=== PATIENT | female | born 1960 | race Caucasian/White ===

== ENCOUNTER 2016-05-07 03:35 | Inpatient (IN) ==
--- NOTE | 2016-05-07 04:11 | Emergency Department Note ---
Disposition Clinical Impression: Colitis, Renal cyst Abdominal pain Qualifiers: Abdominal location: right lower quadrant Qualified Code(s): R10.31 - Right lower quadrant pain Leukocytosis, unspecified Qualifiers: Leukocytosis type: unspecified Qualified Code(s): D72.829 - Elevated white blood cell count, unspecified Disposition: Admitted As Inpatient Condition: Good Instructions: Abdominal Pain (ED), Colitis (ED) Reasons to Return/Additional Instructions: . Referrals: NO,PCP [Non-Partnered Physician] - Forms: Work/School Release, ED Satisfaction Letter Time of Disposition: 05:59 Abdominal Pain HPI - General Chief Complaint: ED Abdominal Pain Stated Complaint: abd pain Time Seen by Provider: 05/07/16 03:55 Source: patient Mode of arrival: ambulatory Limitations: no limitations Nursing Notes Reviewed: Yes Vital Signs Reviewed: Yes - History of Present Illness Pt Subjective Complaint: abdominal pain Onset (ago): day(s) (4-5) Consistency: Worsening Location: RLQ Pain Severity: moderate Pain Scale: 5 Quality: cramping, sharp Radiation: none Migration to: no migration Improves with: nothing Worsens with: nothing Associated symptoms: Reports: denies other symptoms Treatments prior to arrival: none - Related Data Previous Rx's Medication Instructions Recorded Blood Sugar Diagnostic [Glucose 1 each MC ACHS #40 strip 04/20/16 Test Strip] Clindamycin [Cleocin] 300 mg PO Q6HR #80 capsule 04/20/16 Metformin [Glucophage] 500 mg PO BIDWM #20 tablet 04/20/16 Allergies Allergy/AdvReac Type Severity Reaction Status Date / Time No Known Allergies Allergy Verified 04/20/16 12:15 All systems ED: reviewed and negative except as stated. Gastrointestinal: Reports: abdominal pain (RLQ) Abdominal Pain PMH - Past Medical History Medical history: Reports: diabetes, hypertension Female Surgical History: Reports: other - Social History Smoking status: Current every day smoker Alcohol use: Reports: rarely Drug use: Reports: none Physical Exam - General Limitations: no limitations General appearance: alert, in no apparent distress - Head Head exam: atraumatic, normocephalic, normal inspection - Eye Eye exam: Present: normal appearance, PERRL, EOMI - ENT ENT exam: normal exam, normal oropharynx, mucous membranes moist - Respiratory Respiratory exam: Present: normal lung sounds bilaterally - Cardiovascular Cardiovascular exam: Present: regular rate, normal rhythm, normal heart sounds - Abdominal Exam Abdominal exam: Present: tenderness (RLQ healing abscess, less redness, but tender at this site. ), guarding, diminished bowel sounds, tenderness at [place]Bur[place]'s Point. Absent: distention, rebound, rigidity, ascites, mass, bruit, pulsatile mass, hernia, scar - Extremities Exam Extremities exam: Present: normal inspection, full ROM. Absent: tenderness, pedal edema - Back Exam Back exam: Present: normal inspection, full ROM. Absent: tenderness - Neurological Exam Neurological exam: Present: alert, oriented X3 - Psychiatric Psychiatric exam: Present: normal affect, normal mood - Skin Skin exam: Present: warm, dry, intact, normal color Course - Consultations Consultation #1: Spoke with hospitalist who accepted patient for admission Time: 05:45 Vital Signs Temperature 98.3 F 05/07/16 03:38 Pulse Rate 129 05/07/16 03:38 Respiratory Rate 16 05/07/16 03:38 Blood Pressure 137/83 05/07/16 03:38 O2 Sat by Pulse Oximetry 98 05/07/16 03:38 Temperature 98.3 F 05/07/16 03:38 Pulse Rate 129 05/07/16 03:38 Respiratory Rate 16 05/07/16 03:38 Blood Pressure 137/83 05/07/16 03:38 O2 Sat by Pulse Oximetry 98 05/07/16 03:38 Oxygen Delivery Oxygen Delivery Room Air Abdominal Pain - MDM Narrative Medical decision making narrative: CT indicates Colitis possible renal mass that will need further evaluation and follow up Her WBC remains elevated and she has finished her antibiotic will start her on another antibiotic. - Differential Diagnosis Differential Diagnosis: Likely: abdominal pain non-specific - Lab Data Lab results reviewed: Yes I reviewed the patient's lab results. Result diagrams: 05/07/16 05:06 05/07/16 05:06 Lab Results 05/07/16 05/07/16 05/07/16 Range/Units 04:13 05:06 05:06 WBC 25.7 H (4.3-11.1) K/mcL RBC 4.59 (3.82-4.97) M/mcL Hgb 13.7 (11.5-15.4) g/dL Hct 40.6 (35.3-44.9) % MCV 88.5 (83.0-100.0) fL MCH 29.8 (28.0-33.3) pg MCHC 33.7 (31.6-35.5) g/dL RDW 12.5 (11.5-14.5) % Plt Count 278 (140-400) K/mcL MPV 10.7 (9.4-12.4) fL Sodium 136 (136-145) mEq/L Potassium 4.1 (3.5-4.5) mEq/L Chloride 103 (98-109) mEq/L Carbon Dioxide 21 (19-29) mEq/L BUN 13 (7-20) mg/dL Creatinine 0.79 (0.57-1.11) mg/dL Est GFR ( Amer) > 60 (> 60) Est GFR (Non-Af Amer) > 60 (> 60) BUN/Creatinine Ratio 16 (6-26) Glucose 196 H (70-99) mg/dL Calculated Osmolality 288 (280-300) Calcium 9.1 (8.6-10.8) mg/dL Total Bilirubin 0.4 (0.2-1.2) mg/dL Direct Bilirubin 0.2 (0.0-0.5) mg/dL Indirect Bilirubin 0.2 (0.0-1.2) mg/dL AST 15 (5-34) Units/L ALT 23 (0-55) Units/L Alkaline Phosphatase 85 (38-126) Units/L Serum Total Protein 7.5 (6.0-8.3) g/dL Albumin 3.4 L (3.5-5.0) g/dL Globulin 4.1 H (2.4-3.5) g/dL Albumin/Globulin Ratio 0.8 L (1.1-2.2) Amylase 49 (25-125) Units/L Lipase 8 (8-78) Units/L Urine Color Yellow (Yellow) Urine Clarity Cloudy A (Clear) Urine pH 6.0 (5.0-8.0) pH Units Ur Specific [place] 1.007 L (1.010-1.025) Urine Protein Negative (Neg-Trace) mg/dL Urine Glucose (UA) Normal (Normal) mg/dL Urine Ketones Negative (Negative) mg/dL Urine Blood Moderate H (Negative) Urine Nitrite Negative (Negative) Urine Bilirubin Negative (Negative) Urine Urobilinogen Normal (Normal) mg/dL Ur Leukocyte Esterase Negative (Negative) Urine Microscopic RBC 0-3 (0-3) per hpf Urine Microscopic WBC 0-3 (0-3) per hpf Ur Squamous Epith Cells Many H (None-Few) per lpf Urine Bacteria None Seen (None-Few) per hpf Hyaline Casts None Seen (None-Few) per lpf Ur Culture Indicated? NO (NO) - Radiology Data Radiology results reviewed: Yes I reviewed the patient's radiology results.
[2016-05-07 04:33] LABS: Bilirubin,Urine Negative (Negative); Blood,Urine Moderate (Negative); Clarity,Urine Cloudy (Clear); Color,Urine Yellow (Yellow); Glucose,Urine (UA) Normal (Normal); Ketones,Urine Negative (Negative); Leukocyte Esterase,Urine Negative (Negative); Nitrite,Urine Negative (Negative); Protein,Urine Negative (Neg-Trace); Specific Gravity,Urine 1.007 (1.010-1.025); Urobilinogen,Urine Normal (Normal)
[2016-05-07 04:36] LABS: Bacteria,Urine None Seen per hpf (None-Few); Hyaline Casts,Urine None Seen per lpf (None-Few); RBC,Urine 0-3 per hpf (0-3); Squamous Epithelial Cell,Urine Many per lpf (None-Few); WBC,Urine 0-3 per hpf (0-3)
[2016-05-07 05:14] LABS: Basophils % 0.3 %; Eosinophils % 0.5 %; Red Cell Distribution Width 12.5 % (11.5-14.5)
[2016-05-07 05:16] LABS: Basophils # 0.1 K/mcL (0.0-0.2); Eosinophils # 0.1 K/mcL (0.0-0.6); Hematocrit 40.6 % (35.3-44.9); Hemoglobin 13.7 g/dL (11.5-15.4); Immature Granulocytes % 0.5 % (0-4); Lymphocytes # 2.9 K/mcL (0.6-4.6); Lymphocytes % 11.4 %; Mean Corpuscular HGB Conc 33.7 g/dL (31.6-35.5); Mean Corpuscular Hemoglobin 29.8 pg (28.0-33.3); Mean Corpuscular Volume 88.5 fL (83.0-100.0); Mean Platelet Volume 10.7 fL (9.4-12.4); Monocytes # 2.4 K/mcL (0.0-1.3); Monocytes % 9.3 %; Neutrophils # 20.1 K/mcL (1.6-8.9); Platelet Count 278 K/mcL (140-400); Red Blood Count 4.59 M/mcL (3.82-4.97)
[2016-05-07 05:31] LABS: Alanine Aminotransferase 23 Units/L (0-55); Albumin 3.4 g/dL (3.5-5.0); Albumin/Globulin Ratio 0.8 (1.1-2.2); Alkaline Phosphatase 85 Units/L (38-126); Amylase 49 Units/L (25-125); Aspartate Amino Transferase 15 Units/L (5-34); BUN/Creatinine Ratio 16 (6-26); Bilirubin,Direct 0.2 mg/dL (0.0-0.5); Bilirubin,Indirect 0.2 mg/dL (0.0-1.2); Bilirubin,Total 0.4 mg/dL (0.2-1.2); Blood Urea Nitrogen 13 mg/dL (7-20); Calcium 9.1 mg/dL (8.6-10.8); Carbon Dioxide 21 mEq/L (19-29); Chloride 103 mEq/L (98-109); Globulin 4.1 g/dL (2.4-3.5); Glucose 196 mg/dL (70-99); Lipase 8 Units/L (8-78); Osmolality,Calculated 288 (280-300); Potassium 4.1 mEq/L (3.5-4.5); Sodium 136 mEq/L (136-145); Total Protein 7.5 g/dL (6.0-8.3); eGFR For African Americans > 60 (> 60); eGFR For Non-African Americans > 60 (> 60)
[2016-05-07 05:57] LABS: Platelet Estimate Normal (Normal)
--- NOTE | 2016-05-07 06:26 | Emergency Department Note ---
Disposition Clinical Impression: Colitis, Renal cyst Abdominal pain Qualifiers: Abdominal location: right lower quadrant Qualified Code(s): R10.31 - Right lower quadrant pain Leukocytosis, unspecified Qualifiers: Leukocytosis type: unspecified Qualified Code(s): D72.829 - Elevated white blood cell count, unspecified Disposition: Admitted As Inpatient Condition: Good Abdominal Pain HPI - General Chief Complaint: ED Abdominal Pain Stated Complaint: abd pain Source: patient Mode of arrival: ambulatory - History of Present Illness Pt Subjective Complaint: abdominal pain Location: RLQ Pain Severity: moderate Pain Scale: 5 Quality: cramping, sharp Migration to: no migration Improves with: nothing Worsens with: nothing Associated symptoms: Reports: denies other symptoms - Related Data Previous Rx's Medication Instructions Recorded Blood Sugar Diagnostic [Glucose 1 each MC ACHS #40 strip 04/20/16 Test Strip] Clindamycin [Cleocin] 300 mg PO Q6HR #80 capsule 04/20/16 Metformin [Glucophage] 500 mg PO BIDWM #20 tablet 04/20/16 Allergies Allergy/AdvReac Type Severity Reaction Status Date / Time No Known Allergies Allergy Verified 04/20/16 12:15 Gastrointestinal: Reports: abdominal pain (RLQ) Abdominal Pain PMH - Past Medical History Medical history: Reports: diabetes, hypertension Female Surgical History: Reports: other - Social History Smoking status: Current every day smoker Alcohol use: Reports: rarely Drug use: Reports: none Physical Exam - General Limitations: no limitations General appearance: alert, in no apparent distress Course Vital Signs Temperature 98.3 F 05/07/16 03:38 Pulse Rate 129 05/07/16 03:38 Respiratory Rate 16 05/07/16 03:38 Blood Pressure 137/83 05/07/16 03:38 O2 Sat by Pulse Oximetry 98 05/07/16 03:38 Temperature 98.3 F 05/07/16 03:38 Pulse Rate 129 05/07/16 03:38 Respiratory Rate 16 05/07/16 03:38 Blood Pressure 137/83 05/07/16 03:38 O2 Sat by Pulse Oximetry 98 05/07/16 03:38 Oxygen Delivery Oxygen Delivery Room Air Abdominal Pain - Lab Data Result diagrams: 05/07/16 05:06 05/07/16 05:06 Lab Results 05/07/16 05/07/16 05/07/16 Range/Units 04:13 05:06 05:06 WBC 25.7 H (4.3-11.1) K/mcL RBC 4.59 (3.82-4.97) M/mcL Hgb 13.7 (11.5-15.4) g/dL Hct 40.6 (35.3-44.9) % MCV 88.5 (83.0-100.0) fL MCH 29.8 (28.0-33.3) pg MCHC 33.7 (31.6-35.5) g/dL RDW 12.5 (11.5-14.5) % Plt Count 278 (140-400) K/mcL MPV 10.7 (9.4-12.4) fL Immature Gran % 0.5 (0-4) % Seg Neutrophils % 78.0 % Lymphocytes % 11.4 % Monocytes % 9.3 % Eosinophils % 0.5 % Basophils % 0.3 % Neutrophils # 20.1 H (1.6-8.9) K/mcL Lymphocytes # 2.9 (0.6-4.6) K/mcL Monocytes # 2.4 H (0.0-1.3) K/mcL Eosinophils # 0.1 (0.0-0.6) K/mcL Basophils # 0.1 (0.0-0.2) K/mcL Platelet Estimate Normal (Normal) Sodium 136 (136-145) mEq/L Potassium 4.1 (3.5-4.5) mEq/L Chloride 103 (98-109) mEq/L Carbon Dioxide 21 (19-29) mEq/L BUN 13 (7-20) mg/dL Creatinine 0.79 (0.57-1.11) mg/dL Est GFR ( Amer) > 60 (> 60) Est GFR (Non-Af Amer) > 60 (> 60) BUN/Creatinine Ratio 16 (6-26) Glucose 196 H (70-99) mg/dL Calculated Osmolality 288 (280-300) Calcium 9.1 (8.6-10.8) mg/dL Total Bilirubin 0.4 (0.2-1.2) mg/dL Direct Bilirubin 0.2 (0.0-0.5) mg/dL Indirect Bilirubin 0.2 (0.0-1.2) mg/dL AST 15 (5-34) Units/L ALT 23 (0-55) Units/L Alkaline Phosphatase 85 (38-126) Units/L Serum Total Protein 7.5 (6.0-8.3) g/dL Albumin 3.4 L (3.5-5.0) g/dL Globulin 4.1 H (2.4-3.5) g/dL Albumin/Globulin Ratio 0.8 L (1.1-2.2) Amylase 49 (25-125) Units/L Lipase 8 (8-78) Units/L Urine Color Yellow (Yellow) Urine Clarity Cloudy A (Clear) Urine pH 6.0 (5.0-8.0) pH Units Ur Specific [place] 1.007 L (1.010-1.025) Urine Protein Negative (Neg-Trace) mg/dL Urine Glucose (UA) Normal (Normal) mg/dL Urine Ketones Negative (Negative) mg/dL Urine Blood Moderate H (Negative) Urine Nitrite Negative (Negative) Urine Bilirubin Negative (Negative) Urine Urobilinogen Normal (Normal) mg/dL Ur Leukocyte Esterase Negative (Negative) Urine Microscopic RBC 0-3 (0-3) per hpf Urine Microscopic WBC 0-3 (0-3) per hpf Ur Squamous Epith Cells Many H (None-Few) per lpf Urine Bacteria None Seen (None-Few) per hpf Hyaline Casts None Seen (None-Few) per lpf Ur Culture Indicated? NO (NO) Attestation Statement - Attestation Attestation: I, Doug Ramires MD, personally performed a history and physical exam of the patient and discussed their management with the midlevel provicer, PAC/PREPARATION ROOM WORKER. I reviewed the midlevel provider's note and agree with the documented findings, medical decision making, and plan of care. 55-year-old female presents to the emergency department with a complaint of right lower quadrant abdominal pain which started about 4 days ago. The pain has gotten progressively worse. She has had some increased bowel movements but denies diarrhea. No melena, hematemesis, or hematochezia. No nausea or vomiting or fever. No urinary symptoms. She was seen here about 2-3 weeks ago for an ulceration on the right lower quadrant abdominal wall, however this seems to be healing and the pain is actually in a different location from the skin ulceration. On examination the patient is a well-developed well-nourished female in no acute distress. She is alert and oriented 3. There is no cyanosis or diaphoresis. Rest sound are equal bilaterally. Heart regular rate and rhythm. Abdomen is soft with normal bowel sounds. There is moderate localized right mid to lower abdominal tenderness on direct palpation with no guarding or rebound tenderness. Labs reviewed. WBC 25. CT of the abdomen and pelvis shows colitis of the cecum. The hospitalist, Dr. Clifton, was consulted and accepted admission of the patient.
[2016-05-07] MEDS ORDERED: Naloxone 0.4 MG/ML INJ IVP PRN ×2 (06:56→07:47)
--- NOTE | 2016-05-07 07:41 | Internal Med History&Physical ---
Date of Encounter: 05/08/16 Time of Encounter: 07:35 Assessment and Plan (1) Colitis Current visit: Yes Status: Acute Colitis: Patient has a recent history of course of antibiotics: Clindamycin. Plan: -Admitted as inpatient. -Nothing by mouth. -Pain control with morphine 2 mg every 4 hours when necessary. -Blood cultures. -Intravenous ciprofloxacin 200 mg twice a day. -Intravenous metronidazole 500 mg 3 times a day. -IV fluids: Normal saline 75 mL per hour. -Stool workup: C. difficile -Patient will need colonoscopy after this acute episode gets resolved. (2) Abdominal pain Current visit: Yes Status: Acute See above Qualifiers: Abdominal location: right lower quadrant Qualified Code(s): R10.31 - Right lower quadrant pain (3) Diabetes mellitus Current visit: Yes Status: Acute Will hold patient's home medication: Metformin Will monitor blood sugar very closely. I do anticipate mild elevation in blood sugar in view of the underlying infection. Qualifiers: Diabetes mellitus type: type 2 Diabetes mellitus complication status: with unspecified complications Diabetes mellitus alf insulin use: unspecified alf insulin use status Qualified Code(s): E11.8 - Type 2 diabetes mellitus with unspecified complications (4) DVT prophylaxis Current visit: Yes Status: Acute Heparin Medical decision making: This patient has a [id number] risk of worsening gastrointestinal symptoms in spite of being on appropriate medications. Internal Medicine - H&P: HPI Chief complaint: Abdominal pain and diarrhea. Admitted From: Emergency Dept Plans for Post Hospital Care: Home History of present illness: PCP: Mariza Brief past medical history: Diabetes which is not well controlled with metformin. History of present illness: Patient was treated for abdominal wall cellulitis previously with clindamycin. Noted that patient's cellulitis of abdominal wall is improving. Patient noted that since last Thursday she has persistent bloating sensation of abdomen. Patient also had an episode of diarrhea on a Thursday. Since Thursday patient had a persistent loose stools. Complains of generalized abdominal pain mostly on the right side. Patient denies chest pain, nausea, vomiting, palpitations, dizziness or syncopal episode. Course in the emergency room: the patient was worked up with a basic labs and CT scan of the abdomen was done which was suggestive of a colitis. Reason for admission: Patient has a inflammatory/infective etiology for colitis with elevated white count. Patient needs intravenous antibiotics and further workup. I examined this patient on the floor with the help of a lady career services representative who is DRY SANDER. Family history: Noncontributory Past Med Surg Social Fam HX - Past Medical History Medical history: diabetes, hypertension - Social History Smoking Status: Current every day smoker Packs per day: less than 1 Smokeless Tobacco Status: No Alcohol use: rarely Drug use: none Internal Medicine - H&P: Meds Metformin [Glucophage] 1,000 mg PO BID 05/07/16 [History] Allergies No Known Allergies Allergy (Verified 04/20/16 12:15) All Systems PM: A 10-system review of systems was performed and is negative for pertinent findings except as documented above in the HPI. - Constitutional Constitutional: no chills, no fever(s), no night sweats - EENT Eyes: no change in vision, no discharge, no pain, no photophobia Ears: no ear discharge, no ear pain, no tinnitus Nose, mouth and throat: no dysphagia, no nasal discharge, no neck pain, no sore throat - Cardiovascular Cardiovascular ROS IM: no chest pain, no diaphoresis, no dyspnea, no lightheadedness, no palpitations, no syncope - Respiratory Respiratory: no cough, no dyspnea, no wheezing, no excessive phlegm production - Gastrointestinal Gastrointestinal: abdominal pain, diarrhea, loose stools, no hematemesis, no hematochezia, no melena, no nausea, no vomiting - Genitourinary Genitourinary: no change in urinary stream, no dysuria, no flank pain, no hematuria - Musculoskeletal Musculoskeletal ROS IM: no numbness, no tingling - Integumentary Integumentary IM: no rash, no unusual bruising - Neurological Neurological ROS: no confusion, no convulsions, no focal weakness, no numbness, no tingling, no tremor(s) - Hematologic/Lymphatic Hematologic/Lymphatic: no easy bruising - Constitutional Vitals: Temp Pulse Resp BP Pulse Ox 99.3 F 92 14 98/66 94 L 05/07/16 07:08 05/07/16 07:08 05/07/16 07:08 05/07/16 07:08 05/07/16 07:08 General appearance: Present: A&O X 3, pleasant, answers questions appropriately - Head Head exam: Present: atraumatic, normocephalic - Eye Eye exam: Present: PERRL, conjuntiva pink, sclera anicteric Pupils: Present: PERRL - Neck Neck exam general surgery: Present: supple, trachea midline. Absent: lymphadenopathy - Respiratory Respiratory exam: Present: CTAB. Absent: accessory muscle use, rales, rhonchi, wheezes - Cardiovascular Cardiovascular exam: Present: RRR, +S1, +S2. Absent: diastolic murmur, gallop, rubs, systolic murmur - GI/Abdominal GI/Abdominal exam: Present: normal bowel sounds, soft, no peritoneal signs. Absent: distended, tenderness - Extremities Exam Extremities exam: Present: warm, radial pulses palpable and symetrical. Absent : calf tenderness, cyanotic, pedal edema - Neurological Exam Neurological exam: Present: CN II-XII intact, oriented X3, no focal deficits. Absent: pronater drift, facial droop, speech deficit - Skin Skin exam: Present: dry, intact Internal Med - H&P Results - Labs CBC & Chem 7: 05/08/16 05:17 05/08/16 05:17 Labs: Case discussed with the physician on the floor
[2016-05-07] MEDS: *HR* Morphine 2 MG/ML SYRINGE IVP PRN ×3 (07:57→20:00)
[2016-05-07] MEDS: 0.9 % Sodium Chloride 1,000 ML IVC SCH (09:56)
[2016-05-07] MEDS: MetroNIDAZOLE 500 MG/100 ML 500 MG/100 ML BAG IVPB SCH ×3 (10:11→23:47)
[2016-05-07 11:13] LABS: Bilirubin,Urine Negative (Negative); Blood,Urine Moderate (Negative); Clarity,Urine Clear (Clear); Color,Urine Yellow (Yellow); Glucose,Urine (UA) Normal (Normal); Ketones,Urine Negative (Negative); Leukocyte Esterase,Urine Negative (Negative); Nitrite,Urine Negative (Negative); PH,Urine 5.5 pH Units (5.0-8.0); Protein,Urine Negative (Neg-Trace); Specific Gravity,Urine 1.014 (1.010-1.025); Urobilinogen,Urine Normal (Normal)
[2016-05-07 11:15] LABS: Bacteria,Urine None Seen per hpf (None-Few); Hyaline Casts,Urine None Seen per lpf (None-Few); RBC,Urine 0-3 per hpf (0-3); Squamous Epithelial Cell,Urine Many per lpf (None-Few); WBC,Urine 0-3 per hpf (0-3)
[2016-05-07] MEDS: *HR* Heparin 5,000 UNIT/ML VIAL SQ SCH (20:00)
[2016-05-07] MEDS ORDERED: Acetaminophen 650 MG RECTAL SUPP RC PRN (20:11)
[2016-05-08] MEDS: *HR* Morphine 2 MG/ML SYRINGE IVP PRN ×2 (02:54→08:29)
[2016-05-08] MEDS: 0.9 % Sodium Chloride 1,000 ML IVC SCH (05:03)
[2016-05-08 05:54] LABS: Basophils # 0.1 K/mcL (0.0-0.2); Basophils % 0.3 %; Eosinophils # 0.1 K/mcL (0.0-0.6); Eosinophils % 0.4 %; Hematocrit 37.3 % (35.3-44.9); Hemoglobin 12.6 g/dL (11.5-15.4); Immature Granulocytes % 0.7 % (0-4); Lymphocytes # 2.4 K/mcL (0.6-4.6); Lymphocytes % 12.6 %; Mean Corpuscular HGB Conc 33.8 g/dL (31.6-35.5); Mean Corpuscular Hemoglobin 30.2 pg (28.0-33.3); Mean Corpuscular Volume 89.4 fL (83.0-100.0); Monocytes # 1.6 K/mcL (0.0-1.3); Monocytes % 8.2 %; Neutrophils # 15.1 K/mcL (1.6-8.9); Platelet Count 248 K/mcL (140-400); Red Blood Count 4.17 M/mcL (3.82-4.97); Red Cell Distribution Width 12.6 % (11.5-14.5); Segmented Neutrophils % 77.8 %
[2016-05-08 06:18] LABS: Alanine Aminotransferase 17 Units/L (0-55); Albumin 2.9 g/dL (3.5-5.0); Albumin/Globulin Ratio 0.7 (1.1-2.2); Alkaline Phosphatase 77 Units/L (38-126); Aspartate Amino Transferase 12 Units/L (5-34); BUN/Creatinine Ratio 15 (6-26); Bilirubin,Total 0.4 mg/dL (0.2-1.2); Blood Urea Nitrogen 10 mg/dL (7-20); Calcium 8.8 mg/dL (8.6-10.8); Carbon Dioxide 23 mEq/L (19-29); Chloride 106 mEq/L (98-109); Chol/HDL Ratio 4.7 (0-4.9); Cholesterol 168 mg/dL (< 200); Glucose 162 mg/dL (70-99); HDL Cholesterol 36 mg/dL (40-59); LDL Cholesterol,Calculated 112 mg/dL (0-99); Magnesium 1.7 mg/dL (1.6-2.6); Osmolality,Calculated 287 (280-300); Phosphorous 2.8 mg/dL (2.3-4.7); Potassium 3.8 mEq/L (3.5-4.5); Sodium 137 mEq/L (136-145); Total Protein 6.9 g/dL (6.0-8.3); Triglycerides 100 mg/dL (< 150); eGFR For African Americans > 60 (> 60); eGFR For Non-African Americans > 60 (> 60)
[2016-05-08] MEDS: *HR* Heparin 5,000 UNIT/ML VIAL SQ SCH ×2 (06:31→20:36)
[2016-05-08] MEDS: MetroNIDAZOLE 500 MG/100 ML 500 MG/100 ML BAG IVPB SCH ×2 (08:22→17:15)
[2016-05-08] MEDS ORDERED: *HR* Dextrose 50 % in Water (Syg) 50 ML SYRINGE IVP PRN (12:04)
[2016-05-08] MEDS ORDERED: D5% in Water 1,000 ML IV PRN (12:04)
[2016-05-08] MEDS ORDERED: Dextrose Gel 15 GM PO PRN ×2 (12:04)
[2016-05-08] MEDS: Insulin LISPRO 300 UNITS/3 ML VIAL SQ SCH ×2 (12:56→18:32)
--- NOTE | 2016-05-08 15:14 | Internal Med Progress Note ---
Date of Encounter: 05/08/16 Time of Encounter: 15:10 - Assessment and plan (1) Colitis Current Visit: Yes Status: Acute Assessment and plan: Clinically better. colitis incolving primarily the cecum first episode as per the patient, may be infectious or inflammatory. most likely infectious given elevated wbc, will also send ESR and CRP. We will continue IV antibiotics. Start clears today. We will slowly advance diet as tolerated. (2) DVT prophylaxis Current Visit: Yes Status: Acute (3) Diabetes mellitus Current Visit: Yes Status: Acute Qualifiers: Diabetes mellitus type: type 2 Diabetes mellitus complication status: with unspecified complications Diabetes mellitus intermodal dispatcher insulin use: unspecified prison insulin use status Qualified Code(s): E11.8 - Type 2 diabetes mellitus with unspecified complications - Time Spent With Patient 25 - 35 minutes - Subjective Interval history: Patient seen on the bedside, reports that the abdominal pain is a lot better. asking for food, denies any nausea or vomiting. - Constitutional Vitals: Temp Pulse Resp BP Pulse Ox 99.0 F 84 26 110/70 95 05/08/16 14:31 05/08/16 14:31 05/08/16 14:31 05/08/16 14:31 05/08/16 14:31 General appearance: Present: A&O X 3, pleasant, answers questions appropriately Exam: - Head Head exam: Present: atraumatic, normocephalic - Eye Eye exam: Present: PERRL, conjuntiva pink, sclera anicteric Pupils: Present: PERRL - Neck Neck exam general surgery: Present: supple, trachea midline. Absent: lymphadenopathy - Respiratory Respiratory exam: Present: CTAB. Absent: accessory muscle use, rales, rhonchi, wheezes - Cardiovascular Cardiovascular exam: Present: RRR, +S1, +S2. Absent: diastolic murmur, gallop, rubs, systolic murmur - GI/Abdominal GI/Abdominal exam: Present: normal bowel sounds, soft, no peritoneal signs. Absent: distended, tenderness - Extremities Exam Extremities exam: Present: warm, radial pulses palpable and symetrical. Absent : calf tenderness, cyanotic, pedal edema - Neurological Exam Neurological exam: Present: CN II-XII intact, oriented X3, no focal deficits. Absent: pronater drift, facial droop, speech deficit - Skin Skin exam: Present: dry, intact Internal Medicine: Result - Labs CBC & Chem 7: 05/08/16 05:17 05/08/16 05:17 Labs: Short CBC 05/08/16 Range/Units 05:17 WBC 19.4 H (4.3-11.1) K/mcL Hgb 12.6 (11.5-15.4) g/dL Hct 37.3 (35.3-44.9) % Plt Count 248 (140-400) K/mcL Neutrophils # 15.1 H (1.6-8.9) K/mcL BMP 05/08/16 05:17 Sodium 137 Potassium 3.8 Chloride 106 Carbon Dioxide 23 BUN 10 Creatinine 0.67 Glucose 162 H Calcium 8.8 Liver Function 05/08/16 Range/Units 05:17 Total Bilirubin 0.4 (0.2-1.2) mg/dL AST 12 (5-34) Units/L ALT 17 (0-55) Units/L Alkaline Phosphatase 77 (38-126) Units/L Albumin 2.9 L (3.5-5.0) g/dL Consult Discharge Plan - Plan Referrals: Elisa Gr, REAGENT TENDER [Primary Care Provider] - 05/16/16 9:45 am
[2016-05-08 16:00] LABS: C-Reactive Protein 185 mg/L (Less than 5)
[2016-05-09] MEDS: *HR* Heparin 5,000 UNIT/ML VIAL SQ SCH ×3 (00:21→06:15)
[2016-05-09] MEDS: 0.9 % Sodium Chloride 1,000 ML IVC SCH ×2 (00:27→07:27)
[2016-05-09] MEDS: MetroNIDAZOLE 500 MG/100 ML 500 MG/100 ML BAG IVPB SCH ×2 (00:28→07:32)
[2016-05-09] MEDS: Insulin LISPRO 300 UNITS/3 ML VIAL SQ SCH ×2 (06:13)
[2016-05-09 06:54] VITALS: BP 140/84
[2016-05-09 07:15] LABS: Basophils # 0.1 K/mcL (0.0-0.2); Basophils % 0.4 %; Eosinophils # 0.2 K/mcL (0.0-0.6); Eosinophils % 1.4 %; Hemoglobin 12.1 g/dL (11.5-15.4); Immature Granulocytes % 0.5 % (0-4); Lymphocytes # 2.3 K/mcL (0.6-4.6); Mean Corpuscular HGB Conc 33.6 g/dL (31.6-35.5); Mean Corpuscular Hemoglobin 30.3 pg (28.0-33.3); Mean Platelet Volume 11.5 fL (9.4-12.4); Monocytes # 1.1 K/mcL (0.0-1.3); Monocytes % 8.7 %; Neutrophils # 9.2 K/mcL (1.6-8.9); Platelet Count 239 K/mcL (140-400); Red Cell Distribution Width 12.5 % (11.5-14.5)
[2016-05-09 07:29] LABS: BUN/Creatinine Ratio 10 (6-26); Blood Urea Nitrogen 6 mg/dL (7-20); Calcium 8.2 mg/dL (8.6-10.8); Carbon Dioxide 22 mEq/L (19-29); Chloride 106 mEq/L (98-109); Glucose 149 mg/dL (70-99); Osmolality,Calculated 288 (280-300); Potassium 3.6 mEq/L (3.5-4.5); Sodium 139 mEq/L (136-145); eGFR For African Americans > 60 (> 60); eGFR For Non-African Americans > 60 (> 60)
--- NOTE | 2016-05-09 10:30 | Discharge Summary ---
Date of Encounter: 05/09/16 Time of Encounter: 10:28 - Discharge Diagnosis (1) Colitis Priority: Primary Status: Acute (2) DVT prophylaxis Priority: Secondary Status: Acute (3) Diabetes mellitus Priority: Secondary Status: Acute Qualifiers: Diabetes mellitus type: type 2 Diabetes mellitus complication status: with unspecified complications Diabetes mellitus supervisor intermediates insulin use: unspecified supervisor intermediates insulin use status Qualified Code(s): E11.8 - Type 2 diabetes mellitus with unspecified complications - Discharge Medications Prescriptions: Ciprofloxacin [Cipro] 500 mg PO BID #8 tablet MetroNIDAZOLE [Flagyl] 500 mg PO TID #12 tablet Home Medications: Metformin [Glucophage] 1,000 mg PO BID 05/07/16 [History] Ciprofloxacin [Cipro] 500 mg PO BID #8 tablet 05/09/16 [Rx] MetroNIDAZOLE [Flagyl] 500 mg PO TID #12 tablet 05/09/16 [Rx] Allergies/Adverse Reactions: Allergies No Known Allergies Allergy (Verified 04/20/16 12:15) Procedures/tests Complete & Pending: Procedures Performed prior 72 hours Category Date Time Status ECG 12 lead ECG [ECG] Routine Y 05/08/16 05:59 Completed Date of admission: 05/07/16 09:23 Primary care physician: Elisa Gr CNP Discharging clinician: Lefty Rosales Anticipated date of discharge: 05/09/16 - Patient Status Disposition: Home, Self-Care Condition: Fair Functional capacity at discharge: independent ambulation Overall status at discharge: patient is back to baseline - Discharge Instructions Follow Up With: Elisa Gr CNP [Primary Care Provider] - 05/16/16 9:45 am Forms: Work/School Release - Diet and Activity Activity: resume usual activities as tolerated Diet: other (soft diet for 5 days followed by regular diet as tolerated.) Interval History: Patient was treated for abdominal wall cellulitis previously with clindamycin. Noted that patient's cellulitis of abdominal wall is improving. Patient noted that since last Thursday she has persistent bloating sensation of abdomen. Patient also had an episode of diarrhea on a Thursday. Since Thursday patient had a persistent loose stools. Complains of generalized abdominal pain mostly on the right side. Patient denies chest pain, nausea, vomiting, palpitations, dizziness or syncopal episode. Course in the emergency room: the patient was worked up with a basic labs and CT scan of the abdomen was done which was suggestive of a colitis. Patient has a inflammatory/infective etiology for colitis with elevated white count. Patient needs intravenous antibiotics and further workup and was thus admitted. she was started on IV antibiotics and kept NPO. h imporved clinically , diet was gradually advanced to clear liquids which she tolerated well. she is tolerating well soft diet, moving her bowels, denies any nausea or vomiting. tony is being dc in stable condition with oral antibiotics to complete 7 days. Hospital course: Ms. Vo is a 55 year old female Time spent discussing smoking cessation with patient: more than 10 minutes - Time Spent with Patient Total time spent providing and/or coordinating discharge services: Greater than 30 minutes - Constitutional Vitals: Temp Pulse Resp BP Pulse Ox 98.4 F 87 16 140/84 96 05/09/16 06:50 05/09/16 06:50 05/09/16 06:50 05/09/16 06:50 05/09/16 07:41 General appearance: Present: A&O X 3, pleasant, answers questions appropriately Exam: - Head Head exam: Present: atraumatic, normocephalic - Eye Eye exam: Present: PERRL, conjuntiva pink, sclera anicteric Pupils: Present: PERRL - Neck Neck exam general surgery: Present: supple, trachea midline. Absent: lymphadenopathy - Respiratory Respiratory exam: Present: CTAB. Absent: accessory muscle use, rales, rhonchi, wheezes - Cardiovascular Cardiovascular exam: Present: RRR, +S1, +S2. Absent: diastolic murmur, gallop, rubs, systolic murmur - GI/Abdominal GI/Abdominal exam: Present: normal bowel sounds, soft, no peritoneal signs. Absent: distended, tenderness - Extremities Exam Extremities exam: Present: warm, radial pulses palpable and symetrical. Absent : calf tenderness, cyanotic, pedal edema - Neurological Exam Neurological exam: Present: CN II-XII intact, oriented X3, no focal deficits. Absent: pronater drift, facial droop, speech deficit - Skin Skin exam: Present: dry, intact
--- NOTE | 2016-05-09 17:18 | Electrocardiograph Report ---
[address] [place] [address] Test Date: 2016-05-08 Pat Name: Pallavi Vo Department: 115 Room: 3A24 Gender: F Medical Record Assistant: : 1960 Requested By: Lefty Rosales Order Number: [id number] Reading MD: Paulina Silva Measurements Intervals [place] Rate: 82 P: 65 NE: 160 QRS: 12 QRSD: 103 T: 8 QT: 418 QTc: 457 Interpretive Statements SINUS RHYTHM WITH OCCASIONAL VENTRICULAR PREMATURE COMPLEXES ST DEVIATION AND MODERATE T-WAVE ABNORMALITY, CONSIDER ANTERIOR ISCHEMIA Electronically Signed On 05-09-2016 17:17:10 EST by Paulina Silva
== END 2016-05-09 11:03 | disposition home or self-care (01) | DRG 392 ==
LOC: EMEROO 03:35 → 3ANU 03:35
PROVIDERS: ADMIT Internal Medicine; ATTEND Internal Medicine Endocrinology, Diabetes & Metabolism

== ENCOUNTER 2019-10-27 20:29 | Observation (INO) ==
[2019-10-27] MEDS ORDERED: 0.9 % Sodium Chloride 1,000 ML IVC ONE ×2 (21:23→22:20)
[2019-10-27 21:36] LABS: Bilirubin,Urine Negative (Negative); Blood,Urine Large (Negative); Clarity,Urine Turbid (Clear); Color,Urine Yellow (Yellow); Glucose,Urine (UA) 500 mg/dL (Normal); Ketones,Urine 40 mg/dL (Negative); Leukocyte Esterase,Urine Trace (Negative); Mucus,Urine Few per lpf (None-Few); Nitrite,Urine Negative (Negative); PH,Urine 6.5 pH Units (5.0-8.0); Protein,Urine >=300 mg/dL (Neg-Trace); RBC,Urine TNTC per hpf (0-3); Specific Gravity,Urine 1.025 (1.010-1.025); Squamous Epithelial Cell,Urine Moderate per hpf (None-Few); Urobilinogen,Urine Normal (Normal); WBC,Urine 15-30 per hpf (0-3)
[2019-10-27] MEDS ORDERED: Ondansetron 4 MG/2 ML VIAL IVP ONE (21:53)
[2019-10-27 22:02] LABS: Basophils % 0.1 %; Eosinophils # 0.1 K/mcL (0.0-0.6); Eosinophils % 0.3 %; Hematocrit 40.2 % (35.3-44.9); Immature Granulocytes % 0.5 % (0-4); Lymphocytes # 2.2 K/mcL (0.6-4.6); Lymphocytes % 10.7 %; Mean Corpuscular HGB Conc 32.3 g/dL (31.6-35.5); Mean Corpuscular Hemoglobin 29.3 pg (28.0-33.3); Mean Corpuscular Volume 90.7 fL (83.0-100.0); Mean Platelet Volume 10.3 fL (9.4-12.4); Monocytes # 1.6 K/mcL (0.0-1.3); Monocytes % 7.8 %; Neutrophils # 16.6 K/mcL (1.6-8.9); Platelet Count 321 K/mcL (140-400); Red Blood Count 4.43 M/mcL (3.82-4.97); Red Cell Distribution Width 12.7 % (11.5-14.5); Segmented Neutrophils % 80.6 %; White Blood Count 20.6 K/mcL (4.3-11.1)
[2019-10-27 22:24] LABS: Alanine Aminotransferase 37 Units/L (7-52); Albumin 3.9 g/dL (3.5-5.7); Albumin/Globulin Ratio 1.1 (1.1-2.2); Alkaline Phosphatase 90 Units/L (34-104); Aspartate Amino Transferase 28 Units/L (13-39); BUN/Creatinine Ratio 24 (6-26); Bilirubin,Direct 0.1 mg/dL (0.0-0.2); Bilirubin,Indirect 0.3 mg/dL (0.0-1.0); Bilirubin,Total 0.4 mg/dL (0.3-1.0); Blood Urea Nitrogen 22 mg/dL (8-23); Calcium 8.8 mg/dL (8.6-10.3); Carbon Dioxide 23 mEq/L (23-29); Chloride 102 mEq/L (98-107); Globulin 3.5 g/dL (2.4-3.5); Glucose 228 mg/dL (70-105); Lipase 3 Units/L (11-82); Osmolality,Calculated 289 (280-300); Potassium 4.2 mEq/L (3.5-5.1); Sodium 134 mEq/L (136-145); Total Protein 7.4 g/dL (6.4-8.9); Troponin I < 0.03 ng/mL (< 0.04); eGFR For African Americans > 60 (> 60); eGFR For Non-African Americans > 60 (> 60)
[2019-10-27] MEDS ORDERED: *HR* FentaNYL (PF) 100 MCG/2 ML VIAL IVP ONE (23:05)
[2019-10-27] MEDS ORDERED: cefTRIAXone 1,000 MG in Water for inj. (sterile) 10 ML IVP ONE (23:06)
[2019-10-27] MEDS ORDERED: Naloxone 0.4 MG/ML INJ IVP PRN (23:48)
[2019-10-27] MEDS ORDERED: Ketorolac 15 MG/ML VIAL IVP PRN (23:48)
[2019-10-27] MEDS ORDERED: Ondansetron 4 MG/2 ML VIAL IVP PRN (23:48)
[2019-10-27] MEDS ORDERED: *HR* Dextrose 50 % in Water (Vial) 50 ML VIAL IVP PRN (23:51)
[2019-10-27] MEDS ORDERED: D5% in Water 1,000 ML IVC PRN (23:51)
[2019-10-27] MEDS ORDERED: Dextrose Gel 15 GM/37.5 ML TUBE PO PRN ×2 (23:51)
[2019-10-28 00:41] LABS: Adenovirus Not Detected (Not Detect); Coronavirus 229E Not Detected (Not Detect); Coronavirus HKU1 Not Detected (Not Detect); Coronavirus NL63 Not Detected (Not Detect); Coronavirus OC43 Not Detected (Not Detect)
[2019-10-28 00:42] LABS: Bordetella Pertussis Not Detected (Not Detect); Chlamydophila pneumoniae Not Detected (Not Detect); Human Metapneumovirus Not Detected (Not Detect); Human Rhinovirus/Enterovirus Not Detected (Not Detect); Influenza A Subtype 2009 H1 Not Detected (Not Detect); Influenza B Not Detected (Not Detect); Mycoplasma pneumoniae Not Detected (Not Detect); Parainfluenza Virus 1 Not Detected (Not Detect); Parainfluenza Virus 2 Not Detected (Not Detect); Parainfluenza Virus 3 Not Detected (Not Detect); Parainfluenza Virus 4 Not Detected (Not Detect); Respiratory Syncytial Virus Not Detected (Not Detect)
[2019-10-28] MEDS ORDERED: *HR* Promethazine 25 MG/ML VIAL IVP ONE ×2 (01:31→13:26)
[2019-10-28] MEDS: Ringers Solution, Lactated 1,000 ML IVC SCH ×2 (01:38→09:07)
[2019-10-28 05:25] LABS: Basophils % 0.2 %; Eosinophils % 0.1 %; Hematocrit 40.9 % (35.3-44.9); Hemoglobin 13.2 g/dL (11.5-15.4); Immature Granulocytes % 0.6 % (0-4); Lymphocytes # 1.6 K/mcL (0.6-4.6); Lymphocytes % 7.6 %; Mean Corpuscular HGB Conc 32.3 g/dL (31.6-35.5); Mean Corpuscular Hemoglobin 29.7 pg (28.0-33.3); Mean Corpuscular Volume 92.1 fL (83.0-100.0); Mean Platelet Volume 10.4 fL (9.4-12.4); Monocytes # 1.3 K/mcL (0.0-1.3); Monocytes % 6.4 %; Neutrophils # 17.6 K/mcL (1.6-8.9); Platelet Count 285 K/mcL (140-400); Red Blood Count 4.44 M/mcL (3.82-4.97); Red Cell Distribution Width 12.7 % (11.5-14.5); Segmented Neutrophils % 85.1 %; White Blood Count 20.7 K/mcL (4.3-11.1)
[2019-10-28] MEDS ORDERED: *HR* Heparin 5,000 UNIT/ML VIAL SQ SCH (06:00)
[2019-10-28 06:01] LABS: BUN/Creatinine Ratio 19 (6-26); Blood Urea Nitrogen 16 mg/dL (8-23); Calcium 8.5 mg/dL (8.6-10.3); Chloride 102 mEq/L (98-107); Glucose 281 mg/dL (70-105); Osmolality,Calculated 287 (280-300); Potassium 4.1 mEq/L (3.5-5.1); Sodium 133 mEq/L (136-145); eGFR For African Americans > 60 (> 60); eGFR For Non-African Americans > 60 (> 60)
[2019-10-28 06:30] LABS: Carbon Dioxide 19 mEq/L (23-29)
[2019-10-28] MEDS: Insulin LISPRO 300 UNITS/3 ML VIAL SQ SCH ×3 (08:42→16:51)
[2019-10-28] MEDS ORDERED: Ketorolac 30 MG/ML VIAL IVP ONE (10:58)
[2019-10-28] MEDS ORDERED: Ondansetron 4 MG/2 ML VIAL IVP ONE (10:58)
[2019-10-28] MEDS ORDERED: Ringers Solution, Lactated 1,000 ML IVC SCH ×2 (11:00→15:58)
[2019-10-28] MEDS ORDERED: Promethazine 25 MG in 0.9 % Sodium Chloride 50 ML IVPB ONE (13:39)
[2019-10-28] MEDS ORDERED: Isovue-300 50ML VIAL ONE (14:34)
[2019-10-28] MEDS ORDERED: *HR* FentaNYL (PF) 100 MCG/2 ML VIAL ONE (14:46)
[2019-10-28] MEDS ORDERED: *HR* Midazolam HCl 2 MG/2 ML VIAL ONE (14:46)
[2019-10-28] MEDS ORDERED: Lidocaine -MPF 2% 2 ML VIAL ONE (14:46)
[2019-10-28] MEDS ORDERED: Ondansetron 4 MG/2 ML VIAL ONE (14:46)
[2019-10-28] MEDS ORDERED: Dexamethasone 4 MG/ML VIAL ONE (14:46)
[2019-10-28] MEDS ORDERED: *HR* Propofol 200 MG/20 ML VIAL IVP ONE (14:46)
[2019-10-28] MEDS ORDERED: Ketorolac 30 MG/ML VIAL ONE (15:20)
[2019-10-28] MEDS ORDERED: Naloxone 0.4 MG/ML INJ IVP PRN (15:58)
[2019-10-28] MEDS ORDERED: Ondansetron 4 MG/2 ML VIAL IVP PRN (15:58)
[2019-10-28] MEDS ORDERED: Dextrose Gel 15 GM/37.5 ML TUBE PO PRN ×2 (15:58)
[2019-10-28] MEDS ORDERED: *HR* Dextrose 50 % in Water (Vial) 50 ML VIAL IVP PRN (15:58)
[2019-10-28] MEDS ORDERED: Ketorolac 15 MG/ML VIAL IVP PRN (15:58)
[2019-10-28] MEDS ORDERED: D5% in Water 1,000 ML IVC PRN (15:58)
[2019-10-28] MEDS: *HR* Heparin 5,000 UNIT/ML VIAL SQ SCH (16:51)
[2019-10-28] MEDS ORDERED: cefTRIAXone 2,000 MG in Water for inj. (sterile) 20 ML IVP SCH (17:00)
[2019-10-29 01:23] LABS: Hematocrit 34.6 % (35.3-44.9); Hemoglobin 11.2 g/dL (11.5-15.4); Mean Corpuscular HGB Conc 32.4 g/dL (31.6-35.5); Mean Corpuscular Hemoglobin 30.1 pg (28.0-33.3); Mean Platelet Volume 10.9 fL (9.4-12.4); Platelet Count 258 K/mcL (140-400); Red Blood Count 3.72 M/mcL (3.82-4.97); Red Cell Distribution Width 12.6 % (11.5-14.5); White Blood Count 17.9 K/mcL (4.3-11.1)
[2019-10-29 01:47] LABS: BUN/Creatinine Ratio 25 (6-26); Blood Urea Nitrogen 24 mg/dL (8-23); Calcium 8.3 mg/dL (8.6-10.3); Carbon Dioxide 24 mEq/L (23-29); Chloride 104 mEq/L (98-107); Glucose 305 mg/dL (70-105); Osmolality,Calculated 298 (280-300); Potassium 4.2 mEq/L (3.5-5.1); Sodium 136 mEq/L (136-145); eGFR For African Americans > 60 (> 60); eGFR For Non-African Americans 60 (> 60)
[2019-10-29] MEDS: *HR* Heparin 5,000 UNIT/ML VIAL SQ SCH (05:13)
[2019-10-29 06:48] VITALS: BP 154/77
[2019-10-29] MEDS: Insulin LISPRO 300 UNITS/3 ML VIAL SQ SCH (07:59)
== END 2019-10-29 12:05 | disposition home or self-care (01) ==
LOC: 3BNU 20:29 → EMEROOARM 20:29 → 3BNU 10-28 01:06
PROVIDERS: ADMIT Family Medicine; ATTEND Family Medicine